=== PATIENT | female | born 1995 | race Hispanic/Latino ===

== ENCOUNTER 2018-07-26 14:42 | Emergency (ER) | payer OTHER ==
[2018-07-26] MEDS ORDERED: ORPHENADRINE CITRATE 30 MG/ML ML ONE (15:18)
[2018-07-26] MEDS ORDERED: KETOROLAC TROMETHAMINE 60 MG/2 ML VIAL ONE (15:18)
== END 2018-07-26 15:41 | disposition home or self-care (01) ==
LOC: EDBD 14:42 → EDH 14:42
DX: S13.4XXA Sprain of ligaments of cervical spine, initial encounter (principal); V43.62XA Car passenger injured in collision with other type car in traffic accident, initial encounter; Y93.89 Activity, other specified; Y92.410 Unspecified street and highway as the place of occurrence of the external cause; Y99.8 Other external cause status
CPT/HCPCS: 72040; 81025; 96372 ×2; 99285; J1885; J2360

== ENCOUNTER 2019-09-19 19:09 | Emergency (ER) | payer MEDICAID ==
[2019-09-19] MEDS ORDERED: ACETAMINOPHEN EXTRA STRENGTH 500 MG TABLET ONE (19:31)
== END 2019-09-19 21:58 | disposition home or self-care (01) ==
LOC: EDH 19:09
DX: O20.0 Threatened abortion (principal); R82.71 Bacteriuria; Z3A.08 8 weeks gestation of pregnancy

== ENCOUNTER 2023-09-08 09:33 | Emergency (ER) | payer MEDICAID, MEDICARE ==
[~2023-09-08] VITALS: Ht 162.6 cm; Wt 83.0 kg
[2023-09-08 09:53] LABS: BASOPHILS # (AUTO) 0.04 K/uL (0.00-0.20); BASOPHILS % (AUTO) 0.6 % (0.0-5.0); EOSINOPHILS # (AUTO) 0.01 K/uL (0.00-0.70); EOSINOPHILS % (AUTO) 0.2 % (0.0-8.0); HEMATOCRIT 41.6 % (36-48); IMMATURE GRANULOCYTE ABSOLUTE 0.02 K/uL (0-1); LYMPHOCYTES # (AUTO) 0.7 K/uL (1.0-4.8); LYMPHOCYTES % (AUTO) 11.7 % (21.0-51.0); MEAN CORPUSCULAR HEMOGLOBIN 30.3 pg (27.0-33.0); MEAN CORPUSCULAR HGB CONC 34.1 g/dL (32.0-36.0); MEAN CORPUSCULAR VOLUME 88.9 fL (79-99); MONOCYTES # (AUTO) 0.9 K/uL (0.1-1.0); MONOCYTES % (AUTO) 13.6 % (3.0-13.0); NEUTROPHILS # (AUTO) 4.7 K/uL (1.8-7.7); NEUTROPHILS % (AUTO) 73.6 % (40.0-77.0); PLATELET COUNT (AUTO) 190 K/uL (130-400); RED BLOOD CELL COUNT(AUTO) 4.68 MIL/uL (4.00-5.50); RED CELL DISTRIBUTION WIDTH 12.5 % (11.0-15.5); WHITE BLOOD COUNT (AUTO) 6.3 K/uL (4.8-10.8)
[2023-09-08 09:58] VITALS: TEMP 100
[2023-09-08] MEDS: ACETAMINOPHEN 500 MG TABLET ONE (09:58)
[2023-09-08] MEDS: ACETAMINOPHEN 500 MG TABLET PO ONE (09:58)
[2023-09-08] MEDS: 0.9%NACL 1000ML 1,641 ML IV ONE (09:58)
[2023-09-08 10:16] LABS: ALBUMIN 4.2 g/dL (3.5-5.0); BILIRUBIN,TOTAL 0.5 mg/dL (0.2-1.0); CREATININE 0.8 mg/dL (0.5-1.0); POTASSIUM 3.9 mmol/L (3.5-5.1); TOTAL PROTEIN, SERUM 8.3 g/dL (6.0-8.3)
[2023-09-08 10:18] LABS: APPEARANCE,URINE CLEAR (CLEAR); BILIRUBIN,URINE NEGATIVE (NEGATIVE); COLOR,URINE LIGHT-YELLOW (YELLOW); GLUCOSE, URINE (UA) NEGATIVE (NEGATIVE); KETONES,URINE NEGATIVE (NEGATIVE); LEUKOCYTE ESTERASE ,URINE NEGATIVE Leu/uL (NEGATIVE); NITRATE,URINE NEGATIVE (NEGATIVE); OCCULT BLOOD,URINE NEGATIVE (NEGATIVE); PH,URINE 6.5 (5.0-8.0); PROTEIN,URINE NEGATIVE (NEGATIVE); UROBILINOGEN,URINE 0.2 mg/dL (0.2-1.0)
[2023-09-08 10:20] LABS: HCG,QUALITATIVE URINE NEGATIVE (NEGATIVE)
[2023-09-08 10:28] LABS: RAPID GROUP A STREP negative (NEGATIVE)
[2023-09-08 10:34] LABS: SARS-CoV-2, RNA, NAAT POSITIVE SARS CoV-2 (NEGATIVE)
[2023-09-08 10:38] LABS: INFLUENZA TYPE A Negative For Type A (NEGATIVE); INFLUENZA TYPE B Negative For Type B (NEGATIVE)
[2023-09-08 10:48] LABS: ADD UA MICROSCOPIC NO
[2023-09-08 12:35] VITALS: BP 120/60; PULSE 88; RESP 22; O2SAT 98
[2023-09-08] MEDS ORDERED: ONDA-243 PO (13:16)
[2023-09-08] MEDS ORDERED: DIPH50 PO (13:16)
[2023-09-08] MEDS ORDERED: IBUP-2077 PO (13:16)
[2023-09-08] MEDS ORDERED: METH4TAB3 PO (13:25)
== END 2023-09-08 13:30 | disposition home or self-care (01) ==
LOC: EDH 09:33
DX: U07.1 COVID-19 (principal); Z98.890 Other specified postprocedural states
CPT/HCPCS: 99284; 96360; 71045; 87635; 80053; 85025; 87040 ×2; 87880; 87804 ×2; 83605; 81003; 81025; 36415; 84145; J7030